=== PATIENT | male | born 1955 | race Caucasian/White ===

== ENCOUNTER → 2023-08-20 06:46 | Outpatient (REF) | payer MEDICARE, OTHER, SELFPAY | LOC: PAVMRI 06:46 | PROVIDERS: ATTENDING PHYSICIAN Psychiatry & Neurology Neurology; FAMILY PHYSICIAN Family Medicine | DX: M54.16 Radiculopathy, lumbar region (principal) | CPT/HCPCS: 72148 ==

== ENCOUNTER → 2024-06-25 13:21 | Outpatient (REF) | payer MEDICARE, OTHER, SELFPAY | LOC: SDSPAT 13:21 | PROVIDERS: ATTENDING PHYSICIAN Orthopaedic Surgery Orthopaedic Surgery of the Spine; FAMILY PHYSICIAN Family Medicine | DX: M43.16 Spondylolisthesis, lumbar region (principal); M48.062 Spinal stenosis, lumbar region with neurogenic claudication | CPT/HCPCS: 36415; 87070 ==

== ENCOUNTER 2024-07-08 06:11 | Day surgery (SDC) | payer MEDICARE, OTHER, SELFPAY ==
[2024-06-25 14:11] VITALS: BMI 30.9
[2024-07-02 09:00] VITALS: BMI 30.9
[2024-07-08] VITALS (25 sets, daily range): BP systolic 98–148; BP diastolic 57–91; BMI 30.9
[2024-07-08] MEDS: CELEBREX 200 MG PO (10:17)
[2024-07-08] MEDS: SKELAXIN 800 MG PO ×2 (10:17→18:49)
[2024-07-08] MEDS: TYLENOL 1000 MG PO ×2 (10:18→18:53)
[2024-07-08] MEDS: LYRICA 150 MG PO (10:19)
[2024-07-08 10:35] LABS: Glucose - Point of Care 146 mg/dl (70-99)
[2024-07-08] MEDS: NORMOSOL-R/PLASMALYTE-A 1000 IV ×2 (10:38→18:32)
--- NOTE | 2024-07-08 12:58 | W.DS.TRANS ---
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
-
Discharge Instructions:
Sleep Apnea Risk Intermediate
Discharge Diagnosis/Procedures L4-S1 lami-psf Dr. Casas 07/08/24
Diet As tolerated
Activity No strenuous activity
Driving Restrictions No driving
Instructions:
Stand-Alone Forms: [facility]
Changes to Home Medications: Yes
Discharge Medications:
DC Medications w/original date entered in [employer]
allopurinol 100 mg tablet 200 mg PO DAILY 05/10/17
fluticasone propionate 50 mcg/actuation nasal spray,suspension 1 spray intranasal DAILY 05/10/17
duloxetine 30 mg capsule,delayed release 30 mg PO DAILY 07/02/24
rosuvastatin 5 mg tablet 5 mg PO DAILY 07/02/24
Saccharomyces boulardii 250 mg capsule (Florastor) 250 mg PO BID #1 cap 07/08/24
acetaminophen 325 mg tablet (Tylenol) 650 mg (2 x 325 mg) PO QID #1 tab 07/08/24
cephalexin 500 mg capsule 500 mg PO QID infection prevention #20 caps 07/08/24
cyclobenzaprine 5 mg tablet 5 mg PO BID PRN muscle pain/sleep #30 tabs 07/08/24
dexamethasone 4 mg tablet 4 mg PO BID inflammation #6 tabs 07/08/24
docusate sodium 100 mg capsule (Colace) 100 mg PO BID stool softner #1 cap 07/08/24
gabapentin 300 mg capsule 300 mg PO HS sleep/pain #10 caps 07/08/24
magnesium hydroxide 400 mg/5 mL oral suspension (Milk of Magnesia) 30 ml PO HS PRN Constipation #1 mL 07/08/24
ondansetron 4 mg disintegrating tablet 4 mg PO Q6H PRN n/v #20 tabs 07/08/24
oxycodone 5 mg tablet 5 mg PO Q6H PRN 1 tab moderate pain, 2 tabs severe pain #30 tabs 07/08/24
sennosides 8.6 mg tablet (Senokot) 17.2 mg (2 x 8.6 mg) PO BID laxative #2 tabs 07/08/24
Home Medication Changes
Saccharomyces boulardii 250 mg capsule (Florastor) 250 mg PO BID #1 cap 07/08/24
acetaminophen 325 mg tablet (Tylenol) 650 mg (2 x 325 mg) PO QID #1 tab 07/08/24
cephalexin 500 mg capsule 500 mg PO QID infection prevention #20 caps 07/08/24
cyclobenzaprine 5 mg tablet 5 mg PO BID PRN muscle pain/sleep #30 tabs 07/08/24
dexamethasone 4 mg tablet 4 mg PO BID inflammation #6 tabs 07/08/24
docusate sodium 100 mg capsule (Colace) 100 mg PO BID stool softner #1 cap 07/08/24
gabapentin 300 mg capsule 300 mg PO HS sleep/pain #10 caps 07/08/24
magnesium hydroxide 400 mg/5 mL oral suspension (Milk of Magnesia) 30 ml PO HS PRN Constipation #1 mL 07/08/24
ondansetron 4 mg disintegrating tablet 4 mg PO Q6H PRN n/v #20 tabs 07/08/24
oxycodone 5 mg tablet 5 mg PO Q6H PRN 1 tab moderate pain, 2 tabs severe pain #30 tabs 07/08/24
sennosides 8.6 mg tablet (Senokot) 17.2 mg (2 x 8.6 mg) PO BID laxative #2 tabs 07/08/24
Pending Results: No
[2024-07-08] MEDS: DILAUDID 0.5 MG IV ×2 (17:10→18:01)
[2024-07-08] MEDS: CYMBALTA DELAYED RELEASE PO (18:42)
[2024-07-08] MEDS: CYMBALTA DELAYED RELEASE 30 MG PO (18:46)
[2024-07-08] MEDS: ULTRAM 50 MG PO ×2 (18:51→22:46)
[2024-07-08] MEDS: CRESTOR PO (18:57)
[2024-07-08] MEDS: ZYLOPRIM PO (18:57)
[2024-07-08] MEDS: ANCEF 5 IV (19:40)
[2024-07-08] MEDS: COLACE 100 MG PO (20:25)
[2024-07-08] MEDS: SENOKOT 17.2 MG PO (20:25)
--- NOTE | 2024-07-08 21:10 | SUR.PHASEI ---
vss, pain controlled, ate dinner, meds given - looking through tied belonging bags for mouth guard, not found. called,
[2024-07-08] MEDS: LYRICA 75 MG PO (22:46)
[2024-07-09] MEDS: TYLENOL 1000 MG PO ×3 (00:25→11:07)
[2024-07-09 00:28] VITALS: BP 109/62
[2024-07-09] MEDS: ULTRAM 50 MG PO ×3 (02:22→09:02)
[2024-07-09] MEDS: SKELAXIN 800 MG PO ×2 (02:22→09:03)
[2024-07-09 03:11] VITALS: BP 107/60
[2024-07-09] MEDS: NORMOSOL-R/PLASMALYTE-A 1000 IV (04:05)
[2024-07-09] MEDS: ANCEF 5 IV (04:05)
--- NOTE | 2024-07-09 05:01 | PTCARENOTE ---
Patient received from PACU via bed. He was oriented to room and surroundings. See nursing assessment for physical findings. IVF as ordered. VSS
[2024-07-09 06:50] LABS: Hematocrit 37.5 % (39.0-52.0); Hemoglobin 12.5 g/dL (13.0-18.0)
[2024-07-09 07:23] LABS: Blood Urea Nitrogen 14 mg/dl (9-20); Calcium 8.3 mg/dl (8.4-10.2); Carbon Dioxide 27 mmol/L (22-30); Chloride 100 mmol/L (98-107); Estimated Creatinine Clearance 94 ml/min; Glucose 196 mg/dl (70-99); Potassium 4.6 mmol/L (3.5-5.1); Sodium 136 mmol/L (135-145); eGFR > 60.00
--- NOTE | 2024-07-09 07:54 | W.DS.TRANS ---
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
-
Discharge Instructions:
Sleep Apnea Risk Intermediate
Discharge Diagnosis/Procedures L4-S1 lami-psf Dr. Casas 07/08/24
Diet As tolerated
Activity No strenuous activity
Driving Restrictions No driving
Instructions:
Stand-Alone Forms: [facility].
Changes to Home Medications: No
Discharge Medications:
DC Medications w/original date entered in [facility]
allopurinol 100 mg tablet 200 mg PO DAILY 05/10/17
fluticasone propionate 50 mcg/actuation nasal spray,suspension 1 spray intranasal DAILY 05/10/17
duloxetine 30 mg capsule,delayed release 30 mg PO DAILY 07/02/24
rosuvastatin 5 mg tablet 5 mg PO DAILY 07/02/24
Saccharomyces boulardii 250 mg capsule (Florastor) 250 mg PO BID #1 cap 07/08/24
acetaminophen 325 mg tablet (Tylenol) 650 mg (2 x 325 mg) PO QID #1 tab 07/08/24
cephalexin 500 mg capsule 500 mg PO QID infection prevention #20 caps 07/08/24
cyclobenzaprine 5 mg tablet 5 mg PO BID PRN muscle pain/sleep #30 tabs 07/08/24
dexamethasone 4 mg tablet 4 mg PO BID inflammation #6 tabs 07/08/24
docusate sodium 100 mg capsule (Colace) 100 mg PO BID stool softner #1 cap 07/08/24
gabapentin 300 mg capsule 300 mg PO HS sleep/pain #10 caps 07/08/24
magnesium hydroxide 400 mg/5 mL oral suspension (Milk of Magnesia) 30 ml PO HS PRN Constipation #1 mL 07/08/24
ondansetron 4 mg disintegrating tablet 4 mg PO Q6H PRN n/v #20 tabs 07/08/24
oxycodone 5 mg tablet 5 mg PO Q6H PRN 1 tab moderate pain, 2 tabs severe pain #30 tabs 07/08/24
sennosides 8.6 mg tablet (Senokot) 17.2 mg (2 x 8.6 mg) PO BID laxative #2 tabs 07/08/24
Home Medication Changes
Pending Results: No
--- NOTE | 2024-07-09 07:54 | W.PN.SP ---
Today's Communication / Plan
-
s/p lami fusion
Doing well
PT
D/c
Subjective / Objective
Subjective Data
Pt doing well
LEg better
Denies weakness
Objective Data
Vital Signs
Temp Pulse Resp BP Pulse Ox
97.7 F 69 16 107/60 97
07/09/24 03:11 07/09/24 03:11 07/09/24 03:11 07/09/24 03:11 07/09/24 03:11
Intake and Output
07/08/24 07/09/24 07/10/24
06:59 06:59 06:59
Intake Total 2320 / 2320
Output Total 1400 / 1400
Balance 920 / 920
Intake:
Oral fluids 1020 / 1020
IV fluids (Total) 1300 / 1300
normosol 300 / 300
Output:
Urine, Voided 1400 / 1400
Lab Data
07/09/24 05:36
07/09/24 05:36
Physical Exam
-
No focal deficits
[2024-07-09 07:58] VITALS: BP 102/68
[2024-07-09] MEDS: ZYLOPRIM 200 MG PO (09:02)
[2024-07-09] MEDS: COLACE 100 MG PO (09:02)
[2024-07-09] MEDS: SENOKOT 17.2 MG PO (09:02)
[2024-07-09] MEDS: CRESTOR 5 MG PO (09:02)
[2024-07-09] MEDS: LYRICA 75 MG PO (09:03)
[2024-07-09] MEDS: CYMBALTA DELAYED RELEASE 30 MG PO (09:03)
[2024-07-09] MEDS: NORMOSOL-R/PLASMALYTE-A IV (09:05)
--- NOTE | 2024-07-09 11:01 | W.PN.ORTHO ---
Today's Communication / Plan
-
d/c
Assessment
.
Distal Motor Intact: Yes
Dressing:
Clean, dry and intact.
Plan
.
Surgery / Date: L4-S1 lami-psf Dr. Casas 07/08/24
Activity:
Out of bed.
PT/OT
Discharge Plan: Home
Subjective
.
.:
Patient resting comfortably.
Vital Signs and Labs
.
Vital Signs and Labs:
Lab Results
07/09/24 05:36
07/09/24 05:36
Temp Pulse Resp BP Pulse Ox
98.3 F 72 16 102/68 96
07/09/24 07:58 07/09/24 07:58 07/09/24 07:58 07/09/24 07:58 07/09/24 08:00
Physical Exam
-
HEENT: No pallor, cyanosis, or jaundice. Throat clear.
NECK: Supple. No JVD.
RESPIRATORY: Lungs clear to auscultation.
CVS: S1, S2 normal. RRR.� No murmur, rub or gallop.
ABDOMEN: Soft, non-tender. No distension. BS+/normal.
EXTREMITIES: strength equal, no calf pain with palpation
MASTER CONTROL ENGINEER: AOx3. No focal deficits. head sampler grossly intact
--- NOTE | 2024-07-09 11:31 | CM ---
Addendum entered by Soni Landeros 07/09/24 14:24:
Patient/ states they would like VN.
Prefer [facility] - tt liaison who will speak with patient- Referral entered in [facility]
PLAN: Home with [facility]
Original Note:
Patient seen at bedside with
IA Completed
CM consult completed for VN-declines VN
s/p lami fusion - outpatient status - IMM n/a
PT/OT eval
Lives at home in 2 story home with , 2 steps to enter, 12 steps to second floor
PLOF: ambulates with cane
DME: 2 walkers, cane, glucometer
Denies insecurities
Denies HH/Rehab
PCP: Ruel Almazan
Pharmacy: [facility]
PLAN: Home, declines VN
to transport
[2024-07-09 11:44] VITALS: BP 128/74; PULSE 64; O2SAT 96
[2024-07-09 12:16] VITALS: BP 128/74
--- NOTE | 2024-07-09 14:37 | VNURNOTE ---
Home Health Liaison met with patient and family at bedside to discuss [facility] nurse/therapy, visits, schedule and homebound status. Patient is agreeable and understands that visits at home will be 2-3 x per week to assess and teach medical management.
[facility] brochure provided with contact information. Patient is aware that [facility] will contact them for start of care in 1-2 days after discharge from .
[facility] referral completed in [facility].
[2024-07-09 20:45] LABS: Hepatitis C Antibody Negative (Negative)
== END 2024-07-09 14:49 | disposition home or self-care (01) ==
LOC: SDS 06:11
PROVIDERS: Physician Assistant Medical; ATTENDING PHYSICIAN Orthopaedic Surgery Orthopaedic Surgery of the Spine; FAMILY PHYSICIAN Family Medicine
DX: M48.062 Spinal stenosis, lumbar region with neurogenic claudication (principal); M41.9 Scoliosis, unspecified; M43.16 Spondylolisthesis, lumbar region
CPT/HCPCS: 63047; 63048; 22612; 72100; 76000; 80048; 82962; 85014; 85018; 86803; 97116; 97162; 97166; 97530; 97535; C1713; C1776

== ENCOUNTER → 2024-12-24 09:07 | Outpatient (REF) | payer MEDICARE, OTHER, SELFPAY | LOC: RAD 09:07 | PROVIDERS: ATTENDING PHYSICIAN Student in an Organized Health Care Education/Training Program; FAMILY PHYSICIAN Family Medicine | DX: R19.4 Change in bowel habit (principal); R10.32 Left lower quadrant pain | CPT/HCPCS: 74177; Q9967 ==

== ENCOUNTER 2025-01-21 06:23 | Day surgery (SDC) | payer MEDICARE, OTHER, SELFPAY ==
[2025-01-21 13:34] LABS: Glucose - Point of Care 101 mg/dl (70-99)
== END 2025-01-21 15:53 | disposition home or self-care (01) ==
LOC: GI 06:23
PROVIDERS: ATTENDING PHYSICIAN Student in an Organized Health Care Education/Training Program; FAMILY PHYSICIAN Family Medicine
DX: R19.4 Change in bowel habit (principal); R10.32 Left lower quadrant pain; K55.20 Angiodysplasia of colon without hemorrhage; K64.4 Residual hemorrhoidal skin tags; D12.2 Benign neoplasm of ascending colon; K63.5 Polyp of colon
CPT/HCPCS: 45385; 45380; 82962; 88305

== ENCOUNTER 2025-05-07 06:24 | Day surgery (SDC) | payer MEDICARE, OTHER, SELFPAY ==
[2025-05-07 08:20] LABS: Glucose - Point of Care 113 mg/dl (70-99)
== END 2025-05-07 10:12 | disposition home or self-care (01) ==
LOC: GI 06:24
PROVIDERS: ATTENDING PHYSICIAN Student in an Organized Health Care Education/Training Program; FAMILY PHYSICIAN Family Medicine
DX: R14.0 Abdominal distension (gaseous) (principal); R10.84 Generalized abdominal pain; K44.9 Diaphragmatic hernia without obstruction or gangrene; K20.90 Esophagitis, unspecified without bleeding; K31.89 Other diseases of stomach and duodenum; K29.80 Duodenitis without bleeding; K20.80 Other esophagitis without bleeding
CPT/HCPCS: 43239; 82962; 88305; 88342